=== PATIENT | male | born 1985 | race Caucasian/White ===

== ENCOUNTER 2022-03-13 06:23 | Inpatient (IN) | payer BC ==
--- NOTE | 2022-03-09 15:12 | RAD REPORT ---
EXAM DESCRIPTION: RAD - Chest Pa And Lat (2 Views) - 03/09/2022 3:01 pm CLINICAL HISTORY: Pre op pending rectal exam mass removal Chest pain. COMPARISON: No comparisons FINDINGS: The lungs are clear. The heart is normal in size. No displaced fractures. IMPRESSION: No acute or concerning finding suspected.
[2022-03-09 15:27] LABS: Absolute Lymphocytes (CBC) 2.1 K/uL (0.7-4.9); Hematocrit 40.5 % (39.6-49.0); Lymphocytes % 23.9 % (15.3-44.8); MCV 82.3 fL (80-100); MPV 8.6 fL (7.6-11.3); RBC Red Blood Cell Count 4.93 M/uL (4.33-5.43)
[2022-03-09 15:42] LABS: SARS-CoV-2 Antigen Rapid Res Negative (Negative)
[2022-03-09 15:44] LABS: Potassium 3.9 mmol/L (3.5-5.1)
--- NOTE | 2022-03-10 14:04 | EKG ---
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
[2022-03-13] MEDS ORDERED: CEFOXITIN SODIUM 1 GM/VIAL ONE (06:38)
[2022-03-13] MEDS ORDERED: Ringers Lactate 1,000 ML IV ONE (06:39)
[2022-03-13] MEDS ORDERED: BUPIVACAINE 0.5% PF 10 ML VIAL ONE (06:58)
[2022-03-13] MEDS ORDERED: propofoL 200 MG/20 ML VIAL IV ONE ×3 (07:14→07:53)
[2022-03-13] MEDS ORDERED: MIDAZOLAM HCL 2 MG/2 ML INJ ONE ×2 (07:15→08:42)
[2022-03-13] MEDS ORDERED: LIDOCAINE 2% MPF 5 ML VIAL ONE (07:15)
[2022-03-13] MEDS ORDERED: FENTANYL CITR 100 MCG/2 ML ONE ×2 (07:15→07:52)
[2022-03-13] MEDS ORDERED: NS 0.9% VIAL 10 ML ONE (07:23)
[2022-03-13] MEDS ORDERED: ROCURONIUM 50 MG/5 ML VIAL IV ONE (07:52)
[2022-03-13] MEDS ORDERED: dexAMETHasone 10 MG/ML VIAL ONE ×2 (07:55→09:13)
[2022-03-13] MEDS ORDERED: ONDANSETRON 4 MG/2 ML VIAL ONE ×2 (08:24→09:20)
--- NOTE | 2022-03-13 08:43 | P.PN ---
Date of Service: 03/13/22 Patient was scheduled for a exam under anesthesia, proctoscopy and excision of the perianal mass. While being intubated, patient aspirated solid material into his lung. Patient was intubated and stabilized in the OR. The procedure was canceled. Patient was given 10 mg of Decadron. Patient had a chest x-ray in recovery room which showed whiteout of the left lung. The ET tube was pulled back slightly. Repeat x-ray showed almost complete resolution of the right. Patient is clinically stable at this time. Patient is alert and following commands. O2 sats around 93-94% at this time on FiO2 of 100%. Patient remains intubated at this time. Discussed the case in detail with Dr. Tierney and the family. We are going to admit the patient to the ICU under the care of Dr. Zamora. Dr. Hernandez will be consulted from the pulmonary service for continued management. Family has been notified of the plan.
--- NOTE | 2022-03-13 08:47 | RAD REPORT ---
EXAM DESCRIPTION: RAD - Chest Single View - 03/13/2022 8:17 am CLINICAL HISTORY: possible aspiration Chest pain. COMPARISON: Chest Pa And Lat (2 Views) dated 03/09/2022 FINDINGS: Portable technique limits examination quality. Tip of the ET tube is entering the right mainstem bronchus. Complete atelectasis is seen affecting th e left lung. Cardiac size cannot be adequately assessed. No displaced fractures.
[2022-03-13] MEDS ORDERED: SUCCINYLCHOLINE 20 MG/ML (10 ML) IV ONE (08:52)
--- NOTE | 2022-03-13 08:53 | RAD REPORT ---
EXAM DESCRIPTION: RAD - Chest Single View - 03/13/2022 8:41 am CLINICAL HISTORY: S/P ABORTED EUA, ASPIRATION Chest pain. COMPARISON: Chest Single View dated 03/13/2022; Chest Pa And Lat (2 Views) dated 03/09/2022 FINDINGS: Portable technique limits examination quality. Tip of the endotracheal tube is at the level of the aortic arch, above the walter. Atelectasis is lik jasbir present in the right upper lobe. Mildly prominent cardiac silhouette.
[2022-03-13] MEDS ORDERED: GLYCOPYRROLATE 0.2 MG/ML SYR ONE (09:13)
[2022-03-13] MEDS ORDERED: NEOSTIGMINE 1 MG/ML -5 ML ONE (09:20)
[2022-03-13] MEDS ORDERED: KETOROLAC 30 MG/ML INJ ONE (09:20)
[2022-03-13] MEDS ORDERED: propofoL 500 MG/50 ML ML IV PRN (09:30)
[2022-03-13] MEDS ORDERED: ACETAMINOPHEN 500 MG TAB PO PRN (09:30)
[2022-03-13] MEDS ORDERED: ONDANSETRON 4 MG/2 ML VIAL IV PRN (09:30)
[2022-03-13] MEDS ORDERED: FENTANYL CITR 100 MCG/2 ML IV PRN (09:30)
--- OUTSIDE RECORDS SUMMARY | 2022-03-13 10:23 | XMS REPORT | Continuity of Care Document ---
:1985 Author Organization [facility] t Address [address] [place] [address] Care Team Providers Name Role Phone August Mckay Attending Clinician Unavailable LUCINDA SANTAMARIA I Attending Clinician Unavailable Gil Attending Clinician Unavailable Gil Admitting Clinician Unavailable Payers Payer Name Policy Type Policy Number Effective Date Expiration Date S rashad Blue Cross 6 [id number] 2020 Common Spiri t Blue Shield 00:00:00 - [facility] [id number] PPO/EPO - [id number] [place] Blue Cross C1 [id number] Common Spiri t Blue Shield - [facility] [place] Problems Condition Condition Condition Status Onset Resolution Last Treating Co mments Source Name Details Category Date Date Treatment Clinician Date [id number] Insomnia, Problem Com mon unspecifie Spirit d type - [facility] [id number] Attention Problem Comm on deficit Spirit hyperactiv - CHI ity St disorder [facility] (ADHD), Medical combined Center type [id number] Morbid Problem Common (severe) Spirit obesity - CHI due to [facility] [id number] Current Problem Common moderate Spirit episode of - CHI major [facility] depressive [facility] disorder Medical without Center prior episode [id number] Generalize Problem Com mon d anxiety [facility] [id number] Hypertrigl Problem Co mmon yceridemia [facility] Allergies, Adverse Reactions, Alerts This patient has no known allergies or adverse reactions. Social History Social Habit Start Date Stop Date Quantity Comments Source History of Tobacco Use Co mmon [facility] Sex Assigned At Com [facility] Smoking Status Start Date Stop Date Source Never Smoker Common [facility] Current Smoker 2021-11-03 00:00:00 Common Spiri [facility] Medications Ordered Filled Start Stop Current Ordering Indication Dosage Frequency Signature Comments Components Source Medication Medication Date Date Medication? Clinician (SIG) Name Name Vyvanse 70 Vyvanse 70 2021-05 No 1{capsu QD Vyvanse 70 MG MG 0-11 le_in_t MG 00:00: he_morn 00 ing} Vyvanse 70 Vyvanse 70 No 1{capsu QD Vyvanse 70 MG MG 8-18 le_in_t MG 00:00: he_morn 00 ing} Trintellix Trintellix No 1{table QD Trintellix 10 MG 10 MG 8-18 t} 10 MG 00:00: 00 Vyvanse 70 Vyvanse 70 No 1{capsu QD Vyvanse 70 MG MG 8-18 le_in_t MG 00:00: he_morn 00 ing} Trintellix Trintellix No 1{table QD Trintellix 10 MG 10 MG 8-18 t} 10 MG 00:00: 00 Vyvanse 70 Vyvanse 70 No 1{capsu QD Vyvanse 70 MG MG 7-14 le_in_t MG 00:00: he_morn 00 ing} buPROPion buPROPion No 1{table QD buPROPion HCl ER (XL) HCl ER (XL) 7-14 t_in_th HCl ER 150 MG 150 MG 00:00: e_morni (XL) 150 00 ng} MG Vyvanse 70 Vyvanse 70 No 1{capsu QD Vyvanse 70 MG MG 7-14 le_in_t MG 00:00: he_morn 00 ing} buPROPion buPROPion 2021-0 No 1{table QD buPROPion HCl ER (XL) HCl ER (XL) 7-14 t_in_th HCl ER 150 MG 150 MG 00:00: e_morni (XL) 150 00 ng} MG Ciprofloxac Ciprofloxac 202- No 1{table BID Ciprofloxa in HCl 500 in HCl 500 11-03 t} moncho HCl MG MG 00:00: 00:00 500 MG 00 :00 Ciprofloxac Ciprofloxac 2021- No 1{table BID Ciprofloxa in HCl 500 in HCl 500 11-03 t} moncho HCl MG MG 00:00: 00:00 500 MG 00 :00 Ciprofloxac Ciprofloxac 2021- No 1{table BID Ciprofloxa in HCl 500 in HCl 500 11-03 t} moncho HCl MG MG 00:00: 00:00 500 MG 00 :00 Vyvanse 60 Vyvanse 60 2021-0 No 1{capsu QD Vyvanse 60 MG MG 6-05 le_in_t MG 00:00: he_morn 00 ing} Vyvanse 60 Vyvanse 60 2021-0 No 1{capsu QD Vyvanse 60 MG MG 6-05 le_in_t MG 00:00: he_morn 00 ing} Vyvanse 60 Vyvanse 60 2021-0 No 1{capsu QD Vyvanse 60 MG MG 6-05 le_in_t MG 00:00: he_morn 00 ing} Vyvanse 60 Vyvanse 60 2021-0 No 1{capsu QD Vyvanse 60 MG MG 6-05 le_in_t MG 00:00: he_morn 00 ing} Vyvanse 60 Vyvanse 60 2021-0 No 1{capsu QD Vyvanse 60 MG MG 6-05 le_in_t MG 00:00: he_morn 00 ing} Vyvanse 60 Vyvanse 60 2021-0 No 1{capsu QD Vyvanse 60 MG MG 4- le_in_t MG 00:00: he_morn 00 ing} Vyvanse 60 Vyvanse 60 2021-0 No 1{capsu QD Vyvanse 60 MG MG 3- le_in_t MG 00:00: he_morn 00 ing} predniSONE predniSONE 2021-0 2021- No QD predniSONE 20 MG 20 MG -15 08- 20 MG 00:00: 00:00 00 :00 predniSONE predniSONE 2021-0 2021- No QD predniSONE 20 MG 20 MG 07-18 20 MG 00:00: 00:00 00 :00 predniSONE predniSONE 2021-0 2021- No QD predniSONE 20 MG 20 MG -15 08- 20 MG 00:00: 00:00 00 :00 Vyvanse 60 Vyvanse 60 No 1{capsu QD Vyvanse 60 MG MG 2- le_in_t MG 00:00: he_morn 00 ing} Vyvanse 60 Vyvanse 60 2021-0 No 1{capsu QD Vyvanse 60 MG MG 2-02 le_in_t MG 00:00: he_morn 00 ing} Vyvanse 60 Vyvanse 60 2021-0 No 1{capsu QD Vyvanse 60 MG MG 2-02 le_in_t MG 00:00: he_morn 00 ing} Vyvanse 60 Vyvanse 60 2021-0 No 1{capsu QD Vyvanse 60 MG MG 2-02 le_in_t MG 00:00: he_morn 00 ing} Vyvanse 60 Vyvanse 60 2021-0 No 1{capsu QD Vyvanse 60 MG MG 1-03 le_in_t MG 00:00: he_morn 00 ing} Vyvanse 60 Vyvanse 60 2021-0 No 1{capsu QD Vyvanse 60 MG MG 1-03 le_in_t MG 00:00: he_morn 00 ing} Vyvanse 60 Vyvanse 60 2021-0 No 1{capsu QD Vyvanse 60 MG MG 1-03 le_in_t MG 00:00: he_morn 00 ing} Vyvanse 60 Vyvanse 60 No 1{capsu QD Vyvanse 60 MG MG 1-03 le_in_t MG 00:00: he_morn 00 ing} Vyvanse 60 Vyvanse 60 2020-05 No 1{capsu QD Vyvanse 60 MG MG 1-26 le_in_t MG 00:00: he_morn 00 ing} Vyvanse 60 Vyvanse 60 2020-05 No 1{capsu QD Vyvanse 60 MG MG 0-27 le_in_t MG 00:00: he_morn 00 ing} Vyvanse 60 Vyvanse 60 No 1{capsu QD Vyvanse 60 MG MG 9-25 le_in_t MG 00:00: he_morn 00 ing} Vyvanse 60 Vyvanse 60 No 1{capsu QD Vyvanse 60 MG MG 8-26 le_in_t MG 00:00: he_morn 00 ing} Vyvanse Vyvanse 2019- Yes August 1 capsule Common 0-16 Mckay in the Spirit 00:00: morning - [facility] 00 [facility] Kenalog Kenalog 2020-0 No 40mg Common (Triamcinol (Triamcinol 3-13 S pirit one) one) 00:00: - CHI 00 [facility] Kenalog Kenalog 2020-0 No 40mg Common (Triamcinol (Triamcinol 3-13 S pirit one) one) 00:00: - [facility]I 00 [facility] Kenalog Kenalog 2020-0 No 40mg Common (Triamcinol (Triamcinol 3-13 S pirit one) one) 00:00: - CHI 00 [facility] Kenalog Kenalog 2020-0 No 40mg Common (Triamcinol (Triamcinol 3-13 S pirit one) one) 00:00: - [facility]I 00 [facility] Kenalog Kenalog 2020-0 No 40mg Common (Triamcinol (Triamcinol 3-13 S pirit one) one) 00:00: - [facility]I 00 [facility] Kenalog Kenalog 2020-0 No 40mg Common (Triamcinol (Triamcinol 3-13 S pirit one) one) 00:00: - [facility]I 00 [facility] Kenalog Kenalog 2020-0 No 40mg Common (Triamcinol (Triamcinol 3-13 S pirit one) one) 00:00: - [facility]I 00 [facility] Kenalog Kenalog 2020-0 No 40mg Common (Triamcinol (Triamcinol 3-13 S pirit one) one) 00:00: - CHI 00 [facility] Kenalog Kenalog 2020-0 No 40mg Common (Triamcinol (Triamcinol 3-13 S pirit one) one) 00:00: - CHI 00 [facility] Mode Kenalog 2020-0 No 40mg Common (Triamcinol (Triamcinol 3-13 S pirit one) one) 00:00: - CHI 00 [facility] Mode Kenalog 2020-0 No 40mg Common (Triamcinol (Triamcinol 3-13 S pirit one) one) 00:00: - [facility]I 00 [facility] Kenrc Kenalog 2020-0 No 40mg Common (Triamcinol (Triamcinol 3-13 S pirit one) one) 00:00: - [facility]I 00 [facility] Kenrc Kenalog 2020-0 No 40mg Common (Triamcinol (Triamcinol 3-13 S pirit one) one) 00:00: - CHI 00 [facility] Mode Kenalog 2020-0 No 40mg Common (Triamcinol (Triamcinol 3-13 S pirit one) one) 00:00: - [facility]I 00 [facility] sertraline sertraline No sertraline [place] 100 mg 100 mg 100 mg da tablet TAKE tablet TAKE tablet Medical ONE AND ONE AND TAKE ONE Group ONE-HALF (1 ONE-HALF (1 AND AND 1/2) AND 1/2) ONE-HALF TABLET(S) TABLET(S) (1 AND BY MOUTH BY MOUTH 1/2) DAILY. DAILY. TABLET(S) BY MOUTH DAILY. Vyvanse 60 Vyvanse 60 No Vyvanse 60 [place] mg capsule mg capsule mg capsule da TAKE ONE TAKE ONE TAKE ONE Med ical (1) (1) (1) Group CAPSULE(S) CAPSULE(S) CAPSULE(S) BY MOUTH BY MOUTH BY MOUTH EVERY EVERY EVERY MORNING. MORNING. MORNING. Zoloft Zoloft Yes August 1 tablet Commo n Mckay [facility] Trazodone Trazodone Yes August 1 tablet Common HCl HCl Mckay at bedtime [facility] Zoloft 100 Zoloft 100 No 1.5{tab QD Zoloft 100 MG MG let} MG Zoloft 100 Zoloft 100 No Zoloft 100 MG MG MG traZODone traZODone No 1{table QD traZODone HCl 100 MG HCl 100 MG t_at_be HCl 100 MG dtime} Zoloft 100 Zoloft 100 No 1.5{tab QD Zoloft 100 MG MG let} MG traZODone traZODone No 1{table QD traZODone HCl 100 MG HCl 100 MG t_at_be HCl 100 MG dtime} Zoloft 100 Zoloft 100 No Zoloft 100 MG MG MG Zoloft 100 Zoloft 100 No 1.5{tab QD Zoloft 100 MG MG let} MG traZODone traZODone No 1{table QD traZODone HCl 100 MG HCl 100 MG t_at_be HCl 100 MG dtime} Zoloft 100 Zoloft 100 No Zoloft 100 MG MG MG Zoloft 100 Zoloft 100 No 1.5{tab QD Zoloft 100 MG MG let} MG traZODone traZODone No 1{table QD traZODone HCl 100 MG HCl 100 MG t_at_be HCl 100 MG dtime} Zoloft 100 Zoloft 100 No Zoloft 100 MG MG MG Zoloft 100 Zoloft 100 No Zoloft 100 MG MG MG Vyvanse 60 Vyvanse 60 No 1{capsu QD Vyvanse 60 MG MG le_in_t MG he_morn ing} Zoloft 100 Zoloft 100 No Zoloft 100 MG MG MG Zoloft 100 Zoloft 100 No Zoloft 100 MG MG MG Vyvanse 60 Vyvanse 60 No 1{capsu QD Vyvanse 60 MG MG le_in_t MG he_morn ing} Zoloft 100 Zoloft 100 No Zoloft 100 MG MG MG Vyvanse 60 Vyvanse 60 No 1{capsu QD Vyvanse 60 MG MG le_in_t MG he_morn ing} Zoloft 100 Zoloft 100 No Zoloft 100 MG MG MG Vyvanse 60 Vyvanse 60 No 1{capsu QD Vyvanse 60 MG MG le_in_t MG he_morn ing} Zoloft 100 Zoloft 100 No Zoloft 100 MG MG MG Vyvanse 60 Vyvanse 60 No 1{capsu QD Vyvanse 60 MG MG le_in_t MG he_morn ing} Vyvanse 60 Vyvanse 60 No 1{capsu QD Vyvanse 60 MG MG le_in_t MG he_morn ing} Vyvanse 60 Vyvanse 60 No 1{capsu QD Vyvanse 60 MG MG le_in_t MG he_morn ing} Vyvanse 60 Vyvanse 60 No 1{capsu QD Vyvanse 60 MG MG le_in_t MG he_morn ing} Vyvanse 60 Vyvanse 60 No 1{capsu QD Vyvanse 60 MG MG le_in_t MG he_morn ing} Trintellix Trintellix No 1{table QD Trintellix 20 MG 20 MG t} 20 MG Zoloft 100 Zoloft 100 No Zoloft 100 MG MG MG Zoloft 100 Zoloft 100 No 1.5{tab QD Zoloft 100 MG MG let} MG traZODone traZODone No 1{table QD traZODone HCl 100 MG HCl 100 MG t_at_be HCl 100 MG dtime} traZODone traZODone No 1{table QD traZODone HCl 100 MG HCl 100 MG t_at_be HCl 100 MG dtime} Zoloft 100 Zoloft 100 No 1.5{tab QD Zoloft 100 MG MG let} MG Zoloft 100 Zoloft 100 No Zoloft 100 MG MG MG Immunizations Ordered Immunization Filled Immunization Date Status Commen ts Source Name Name Mode Coello 2019-08-04 Completed Common [facility] (Triamcinolone) (Triamcinolone) 08:53:00 - I [facility] Kenalog Kenalog 2019-08-04 Completed Common Spirit (Triamcinolone) (Triamcinolone) 08:53:00 - I [facility] Adacel (Tdap) Adacel (Tdap) 2018-08-03 Completed Common S pirit 15:18:00 - [facility] Adacel (Tdap) Adacel (Tdap) 2018-08-03 Completed Common S pirit 15:18:00 - [facility] Adacel (Tdap) Adacel (Tdap) 2018-08-03 Completed Common S pirit 15:18:00 - [facility] Adacel (Tdap) Adacel (Tdap) 2018-08-03 Completed Common S pirit 15:18:00 - [facility] Adacel (Tdap) Adacel (Tdap) 2018-08-03 Completed Common S pirit 15:18:00 - [facility] Adacel (Tdap) Adacel (Tdap) 2018-08-03 Completed Common S pirit 15:18:00 - [facility] Adacel (Tdap) Adacel (Tdap) 2018-08-03 Completed Common S pirit 15:18:00 - [facility] Adacel (Tdap) Adacel (Tdap) 2018-08-03 Completed Common S pirit 15:18:00 - [facility] Adacel (Tdap) Adacel (Tdap) 2018-08-03 Completed Common S pirit 15:18:00 - [facility] Adacel (Tdap) Adacel (Tdap) 2018-08-03 Completed Common S pirit 15:18:00 - [facility] Adacel (Tdap) Adacel (Tdap) 2018-08-03 Completed Common S pirit 15:18:00 - [facility] Adacel (Tdap) Adacel (Tdap) 2018-08-03 Completed Common S pirit 15:18:00 - [facility] Adacel (Tdap) Adacel (Tdap) 2018-08-03 Completed Common S pirit 15:18:00 - [facility] Adacel (Tdap) Adacel (Tdap) 2018-08-03 Completed Common S pirit 15:18:00 - [facility] Adacel (Tdap) Adacel (Tdap) 2018-08-03 Completed Common S pirit 15:18:00 - [facility] Adacel (Tdap) Adacel (Tdap) 2018-08-03 Completed Common S pirit 15:18:00 - [facility] Adacel (Tdap) Adacel (Tdap) 2018-08-03 Completed Common S pirit 15:18:00 - [facility] TDAP > 7 TDAP > 7 2018-08-03 Completed Common Spirit Years-Adacel Years-Adacel 00:00:00 - [facility] Vital Signs Vital Name Observation Time Observation Value Comments Source height 2022-03-03 08:00:00 69 [in_i] Common pirit [facility] weight 2022-03-03 08:00:00 425 [lb_av] Common S pirit [facility] bmi 2022-03-03 08:00:00 62.75 kg/m2 Common S pirit [facility] blood pressure 2022-03-03 08:00:00 132 mm[Hg] Common Spirit - systolic [facility] blood pressure 2022-03-03 08:00:00 75 mm[Hg] Common Spirit - diastolic [facility] height 2022-01-08 11:30:00 69 [in_i] Common S pirit [facility] weight 2022-01-08 11:30:00 422 [lb_av] Common S pirit [facility] temperature 2022-01-08 11:30:00 98 [degF] Common S pirit [facility] bmi 2022-01-08 11:30:00 62.31 kg/m2 Common S pirit [facility] blood pressure 2022-01-08 11:30:00 130 mm[Hg] Common Spirit - systolic [facility] blood pressure 2022-01-08 11:30:00 70 mm[Hg] Common Spirit - diastolic [facility] height 2021-12-04 09:30:00 69 [in_i] [facility] weight 2021-12-04 09:30:00 422 [lb_av] [facility] temperature 2021-12-04 09:30:00 97.6 [degF] Common S pirit [facility] bmi 2021-12-04 09:30:00 62.31 kg/m2 Common S pirit [facility] oximetry 2021-12-04 09:30:00 97 % Common [facility] respiratory rate 2021-12-04 09:30:00 18 /min Comm on [facility] blood pressure 2021-12-04 09:30:00 136 mm[Hg] Common [facility] - systolic [facility] blood pressure 2021-12-04 09:30:00 74 mm[Hg] Common [facility] - diastolic [facility] height 2021-11-03 10:40:00 69 [in_i] Common [facility] weight 2021-11-03 10:40:00 417.8 [lb_av] [facility] temperature 2021-11-03 10:40:00 98.1 [degF] Common [facility] bmi 2021-11-03 10:40:00 61.69 kg/m2 [facility] oximetry 2021-11-03 10:40:00 99 % Common S [facility] respiratory rate 2021-11-03 10:40:00 18 /min Comm on [facility] blood pressure 2021-11-03 10:40:00 135 mm[Hg] Common [facility] - systolic [facility] blood pressure 2021-11-03 10:40:00 88 mm[Hg] Common Spirit - diastolic [facility] height 2021-09-25 07:40:00 69 [in_i] [facility] weight 2021-09-25 07:40:00 418 [lb_av] Common S pirit - [facility] temperature 2021-09-25 07:40:00 97.4 [degF] Common S pirit - [facility] bmi 2021-09-25 07:40:00 61.72 kg/m2 Common S pirit [facility] blood pressure 2021-09-25 07:40:00 135 mm[Hg] Common Spirit - systolic [facility] blood pressure 2021-09-25 07:40:00 75 mm[Hg] Common Spirit - diastolic [facility] height 2021-07-30 08:00:00 69 [in_i] Common S pirit [facility] weight 2021-07-30 08:00:00 418 [lb_av] [facility] temperature 2021-07-30 08:00:00 98 [degF] Common S pirit [facility] bmi 2021-07-30 08:00:00 61.72 kg/m2 [facility] S pirit [facility] blood pressure 2021-07-30 08:00:00 132 mm[Hg] Common Spirit - systolic [facility] blood pressure 2021-07-30 08:00:00 71 mm[Hg] Common Spirit - diastolic [facility] height 2021-07-18 11:40:00 69 [in_i] [facility] weight 2021-07-18 11:40:00 420 [lb_av] Common S pirit [facility] temperature 2021-07-18 11:40:00 97 [degF] Common S pirit [facility] bmi 2021-07-18 11:40:00 62.02 kg/m2 [facility] height 2021-05-14 16:30:00 69 [in_i] [facility] weight 2021-05-14 16:30:00 420 [lb_av] [facility] S pirit [facility] temperature 2021-05-14 16:30:00 98 [degF] [facility] S pirit [facility] bmi 2021-05-14 16:30:00 62.02 kg/m2 Common S pirit [facility] blood pressure 2021-05-14 16:30:00 135 mm[Hg] Common Spirit - systolic [facility] blood pressure 2021-05-14 16:30:00 70 mm[Hg] Common Spirit - diastolic [facility] height 2021-03-19 07:50:00 69 [in_i] Common S pirit [facility] weight 2021-03-19 07:50:00 418 [lb_av] [facility] temperature 2021-03-19 07:50:00 97.3 [degF] Common S pirit [facility] bmi 2021-03-19 07:50:00 61.72 kg/m2 [facility] blood pressure 2021-03-19 07:50:00 130 mm[Hg] Common Spirit - systolic [facility] blood pressure 2021-03-19 07:50:00 76 mm[Hg] Common Spirit - diastolic [facility] height 2021-01-16 13:20:00 69 [in_i] Common [facility] weight 2021-01-16 13:20:00 420 [lb_av] Common S pirit [facility] temperature 2021-01-16 13:20:00 98 [degF] Common S pirit [facility] bmi 2021-01-16 13:20:00 62.02 kg/m2 Common S pirit - [facility] blood pressure 2021-01-16 13:20:00 131 mm[Hg] Common Spirit - systolic [facility] blood pressure 2021-01-16 13:20:00 67 mm[Hg] Common Spirit - diastolic [facility] BMI (Body Mass 2020-10-15 00:00:00 62 kg/m2 [facility]) Group BP Systolic 2020-10-15 00:00:00 168 mm[Hg] [facility] Body Weight 2020-10-15 00:00:00 6720 [oz_av] [facility] BP Diastolic 2020-10-15 00:00:00 95 mm[Hg] [facility] Height 2020-10-15 00:00:00 69 [in_i] [facility] Procedures Procedure Date / Time Performing Clinician Source Performed [facility] + LH PROFILE 2021-10-24 15:26:00 [facility] TESTOSTERONE 2021-10-24 15:26:00 [facility] COMPREHENSIVE METABOLIC 2021-10-24 15:26:00 [facility] Encounters Start End Encounter Admission Attending Care Care Encounter Source Date/Time Date/Time Type Type Clinicians Facility Department ID 2021-08-12 Outpatient Mckay, STLMLC STLMLC [id number] Common 13:24:01 August [id number] [facility] 2021-07-25 Outpatient Mckay, STLMLC STLMLC [id number] Common 14:11:00 August [id number] [facility] 2021-06-18 Outpatient Mckay, STLMLC STLMLC [id number] Common 14:01:06 August [id number] [facility] 2021-06-18 Outpatient Mckay, STLMLC STLMLC [id number] Common 14:00:46 August [id number] [facility] 2021-06-18 Outpatient Mckay, STLMLC STLMLC [id number] Common 13:27:42 August [id number] [facility] 2021-06-18 Outpatient Mckay, STLMLC STLMLC [id number] Common 12:47:28 August [id number] [facility] 2021-06-18 Outpatient Mckay, STLMLC STLMLC [id number] Common 12:13:08 August [id number] [facility] 2021-06-18 Outpatient Mckay, STLMLC STLMLC [id number] Common 11:18:43 August [id number] [facility] 2022-03-03 2022-03-03 OFFICE STLC STLC [id number] Co mmon 00:00:00 00:00:00 VISIT Spirit ESTAB PT - CHI LEVEL 4 [facility] 2022-01-14 2022-01-14 (TEL) STLMLC STLMLC [id number] Co mmon 00:00:00 00:00:00 [facility] 2022-01-08 2022-01-08 OFFICE STLMLC STLMLC [id number] Co mmon 00:00:00 00:00:00 VISIT Spirit ESTAB PT - [facility] LEVEL 4 [facility] 2021-12-10 2021-12-10 (TEL) STLMLC STLMLC [id number] Co mmon 00:00:00 00:00:00 [facility] 2021-12-04 2021-12-04 (WELLNESS) STLMLC STLMLC [id number] Common 00:00:00 00:00:00 Wellness Spiri t [facility] 2021-11-05 2021-11-05 (TEL) STLMLC STLMLC [id number] Co mmon 00:00:00 00:00:00 [facility] 2021-11-04 2021-11-04 (TEL) STLMLC STLMLC [id number] Co mmon 00:00:00 00:00:00 [facility] 2021-11-03 2021-11-03 (TEL) STLMLC STLMLC [id number] Co mmon 00:00:00 00:00:00 [facility] 2021-11-03 2021-11-03 OFFICE STLMLC STLMLC [id number] Co mmon 00:00:00 00:00:00 VISIT EST Spir it PT LEVEL 3 [facility] 2021-10-24 2021-10-24 Outpatient NENA SANTAMARIA [facility] [id number] [facility] 12:40:47 12:40:47 LUCINDA Carter 2021-09-25 2021-09-25 OFFICE STLMLC STLMLC [id number] Co mmon 00:00:00 00:00:00 VISIT EST Spir it PT LEVEL 3 [facility] 2021-07-30 2021-07-30 OFFICE STLMLC STLMLC [id number] Co mmon 00:00:00 00:00:00 VISIT EST Spir it PT LEVEL 3 [facility] 2021-07-18 2021-07-18 OFFICE STLMLC STLMLC [id number] Co mmon 00:00:00 00:00:00 VISIT EST Spir it PT LEVEL 3 [facility] 2021-07-18 2021-07-18 (TEL) STLMLC STLMLC [id number] Co mmon 00:00:00 00:00:00 [facility] 2021-07-17 2021-07-17 (TEL) STLMLC STLMLC [id number] Co mmon 00:00:00 00:00:00 [facility] 2021-05-14 2021-05-14 OFFICE STLMLC STLMLC [id number] Co mmon 00:00:00 00:00:00 VISIT EST Spir it PT LEVEL 3 [facility] 2021-03-19 2021-03-19 OFFICE STLMLC STLMLC [id number] Co mmon 00:00:00 00:00:00 VISIT EST Spir it PT LEVEL 3 [facility] 2021-01-16 2021-01-16 OFFICE STLMLC STLMLC [id number] Co mmon 00:00:00 00:00:00 VISIT EST Spir it PT LEVEL 3 [facility] 2020-12-18 2020-12-18 Outpatient STLMLC STLMLC [id number] Common 00:00:00 00:00:00 [facility] 2020-11-11 2020-11-11 Outpatient STLMLC STLMLC [id number] Common 00:00:00 00:00:00 [facility] 2020-10-16 2020-10-16 Outpatient Koudela_A MMG MMG [id number] [place] 09:26:00 09:26:00 [id number] [facility] 2020-10-15 2020-10-15 [place] K[place] - [id number] [place] 00:00:00 00:00:00 [facility] 0525 rosio PA-C: [address] [place] [address] [address], [facility], [place] [address] , Ph. 2020-10-14 2020-10-14 Outpatient Gil [facility] [id number] [place] 03:35:00 03:35:00 [id number] [facility] Group 2020-08-27 2020-08-27 Outpatient STLMLC STLMLC [id number] Common 00:00:00 00:00:00 [facility] 2020-06-25 2020-06-25 Outpatient STLMLC STLMLC [id number] Common 00:00:00 00:00:00 [facility] 2020-06-17 2020-06-17 Outpatient [facility] ST[facility] [id number] Common 00:00:00 00:00:00 [facility] 2020-04-25 2020-04-25 Outpatient [facility] ST[facility] [id number] Common 00:00:00 00:00:00 [facility] 2020-02-09 2020-02-09 [id number] Common 09:40:00 09:40:00 [place] [address] [facility] 2019-12-15 2019-12-15 [facility] [id number] Common 07:49:00 07:49:00 [place] [address] [facility] 2019-11-08 2019-11-08 [facility] 30 [id number] Common 11:30:00 11:30:[address] [place] [address] [facility] 2019-09-12 2019-09-12 [id number] Common 14:45:00 14:45:00 t [place] [address] [facility] 2019-08-04 2019-08-04 [id number] Common 08:15:00 08:15:00 t [place] [address] [facility] 2019-07-19 2019-07-19 [id number] Common 10:15:00 10:15:00 t [place] [address] [facility] 2019-06-21 2019-06-21 [id number] Common 08:43:00 08:43:[address] [facility] 2019-04-19 2019-04-19 [facility] [id number] Common 10:30:00 10:30:00 t [place] [address] [facility] 2019-03-21 2019-03-21 [facility] [id number] Common 13:15:00 13:15:00 t [place] [address] [facility] 2019-03-15 2019-03-15 [facility] [id number] Common 09:35:00 09:35:00 t [place] [address] [facility] 2019-02-21 2019-02-21 [id number] Common 11:00:00 11:00:00 t [place] [address] [facility] 2019-01-16 2019-01-16 [facility] [id number] Common 08:30:00 08:30:00 t [place] [address] [facility] 2018-12-20 2018-12-20 [facility] [id number] Common 15:15:00 15:15:00 t [place] [address] [facility] 2018-11-29 2018-11-29 [facility] [id number] Common 11:00:00 11:00:00 t [place] [address] [facility] 2018-11-16 2018-11-16 [facility] [id number] Common 11:07:00 11:07:00 t [place] [address] [facility] 2018-08-03 2018-08-03 [facility] [id number] Common 15:15:00 15:15:00 t [place] [address] [facility] 2018-07-28 2018-07-28 [facility] [id number] Common 10:42:00 10:42:00 t [place] [address] [facility] 2018-06-27 2018-06-27 [facility] [id number] Common 11:06:00 11:06:00 t [place] [address] [facility] 2018-06-06 2018-06-06 [facility] [id number] Common 14:45:00 14:45:00 t [place] [address] [facility] 2018-05-05 2018-05-05 [facility] [id number] Common 09:30:00 09:30:00 t [place] [address] [facility] Results Test Description Test Time Test Comments Results Result Comments Source Urine Culture,Comprehensive 2021-11-03 00:00:00 Test Item Value Reference Range Interpretation Comme nts Urine Culture,Comprehensive (test code = 630-4) Final report
--- NOTE | 2022-03-13 11:33 | P.CNS ---
Date of Consult: 03/13/22 Reason for Consult: Atelectasis of the left lung Chief Complaint: Respiratory failure History of Present Illness: Patient is 37 years of age and was admitted for outpatient excision of the left anal mass currently after intubated intubation he had vomited chest x-ray shows complete opacification of the left lung most likely from right mainstem intubation his chest x-ray is normal he was extubated prior to admitted to the ICU denies any prior cardiopulmonary history Allergies No Known Allergies Allergy (Verified 03/09/22 14:26) Home Medications: Lisdexamfetamine Dimesylate [Vyvanse] 70 mg PO DAILY 03/09/22 Vortioxetine Hydrobromide [Brintellix] 20 mg PO DAILY 03/09/22 Review of Systems 10-point ROS is otherwise unremarkable Physical Examination Temp Pulse Resp BP Pulse Ox 96.8 F 87 12 146/57 H 03/13/22 10:19 03/13/22 10:19 03/13/22 10:19 03/13/22 10:19 General: Alert, In no apparent distress, Oriented x3 Neck: Supple Respiratory: Clear to auscultation bilaterally, Normal air movement Cardiovascular: No edema, Normal S1 S2 - Problems (1) Atelectasis of left lung Current Visit: Yes Status: Acute Plan: Patient is 37 years of age admitted as an outpatient for excision of his anal mass developed atelectasis of the left lung I suspect it was right mainstem intubation also had some vomiting there I doubt if he has aspiration repeat chest x-ray is clear he is asymptomatic denies any problems patient was extubated he is alert oriented responsive cooperative. Labs reviewed unremarkable stable for discharge no antibiotics needed
[2022-03-13] MEDS ORDERED: PIPER TAZO 3.375 GM in NA CHLORIDE 0.9% 50 ML IV SCH (12:00)
[2022-03-13] MEDS: PIPER TAZO 3.375 GM in NA CHLORIDE 0.9% 100 ML IV SCH ×2 (12:53→17:00)
[2022-03-13] MEDS: NA CHLORIDE 0.9% 1,000 ML IV SCH (12:53)
[2022-03-13] MEDS: METHYLPREDNISOLONE 40 MG INJ IV SCH ×3 (12:54→23:39)
[2022-03-13] MEDS: METOCLOPRAMIDE 10 MG/2mL INJ IV SCH ×3 (12:54→23:39)
[2022-03-13] MEDS: IPRATROPIUM BROM 0.5MG/2.5ML NEB SCH ×2 (14:16→19:35)
[2022-03-13] MEDS: ALBUTEROL 2.5 MG/3 ML NEB SOL NEB SCH ×2 (14:16→19:35)
[2022-03-13 16:34] VITALS: BMI 62.0
--- NOTE | 2022-03-13 19:11 | P.HP ---
Certification for Inpatient Patient admitted to: Inpatient With expected LOS: >2 Midnights Patient will require the following post-hospital care: None Practitioner: I am a practitioner with admitting privileges, knowledge of patient current condition, hospital course, and medical plan of care. Services: Services provided to patient in accordance with Admission requirements found in Title 42 Section 412.3 of the Code of Federal Regulations Patient History Date of Service: 03/13/22 Reason for admission: Respiratory failure History of Present Illness: Patient is a 37-year-old gentleman who was scheduled for excision of a anal mass but when he was intubated he aspirated. Surgical procedure was canceled. We were, consulted for admission. Patient remains intubated at this time but he is oxygenating much better per Anesthesiology. Chest x-ray has shown improvement as well. Food particles were suctioned from ET tube. Patient will be weaned off the ventilator. Pulmonary consultation has been obtained. Anticipate extubation over the next 12 hours. Allergies No Known Allergies Allergy (Verified 03/09/22 14:26) Home Medications: Lisdexamfetamine Dimesylate [Vyvanse] 70 mg PO DAILY 03/09/22 Vortioxetine Hydrobromide [Trintellix] 20 mg PO DAILY 03/09/22 Amox/Clavulanate [Augmentin 875-125 Tab] 1 each PO BID #20 tab 03/14/22 predniSONE [Deltasone] 20 mg PO DAILY #5 tab 03/14/22 - Past Medical/Surgical History -: Anal mass -: ADD Past Surgical History: Patient denies surgical history - Family History Father Family History: Reviewed- Non-Contributory - Social History Smoking Status: Never smoker Alcohol use: No CD- Drugs: No Review of Systems is unable to be obtained Physical Examination - Vital Signs Temperature: 98.1 F Blood Pressure: 96/65 Pulse: 105 Respirations: 22 Pulse Ox (%): 95 - Physical Exam General: Alert, Other (ET tube) HEENT: Atraumatic, Normocephalic Neck: Supple, 2+ carotid pulse no bruit, JVD not distended Respiratory: Diminished, Rhonchi/gurgles Cardiovascular: Regular rate/rhythm, Normal S1 S2, No murmurs Gastrointestinal: Normal bowel sounds, Soft and benign, Non-distended, No tenderness Musculoskeletal: No clubbing, No swelling Integumentary: No rashes Neurological: Normal gait, Normal speech, Normal strength at 5/5 x4 extr, Normal tone, Sensation intact, Cranial nerves 3-12 intact Lymphatics: No axilla or inguinal lymphadenopathy Assessment & Plan - Problems (Diagnosis) (1) Aspiration pneumonia Current Visit: Yes Status: Acute Qualifiers: Laterality: right (2) Atelectasis of left lung Current Visit: Yes Status: Acute - Plan Plan: 1. Continue with IV antibiotics 2. Awaiting cultures 3. Repeat chest x-ray 4. Continue with surgery eval 5. Appreciate pulmonary consultation 6. Continue with nebs as needed 7. O2 per protocol 8. Continue with gentle hydration 9. Repeat labs including CBC and renal function in a.m. 10. GI and DVT prophylaxis Discharge Plan: Home Plan to discharge in: Greater than 2 days - Advance Directives Does patient have a Living Will: No Does patient have a Durable POA for Healthcare: No - Code Status/Comfort Care Code Status Assessed: Yes Code Status: Full Code Critical Care: No Time Spent Managing PTS Care (In Minutes): 45
[2022-03-13] MEDS ORDERED: MELATONIN 5 MG TABLET PO PRN (23:33)
[2022-03-14] MEDS: ALBUTEROL 2.5 MG/3 ML NEB SOL NEB SCH (01:25)
[2022-03-14] MEDS: IPRATROPIUM BROM 0.5MG/2.5ML NEB SCH (01:25)
[2022-03-14] MEDS: PIPER TAZO 3.375 GM in NA CHLORIDE 0.9% 100 ML IV SCH ×2 (02:12→08:58)
[2022-03-14] MEDS: NA CHLORIDE 0.9% 1,000 ML IV SCH (04:12)
[2022-03-14] MEDS: METOCLOPRAMIDE 10 MG/2mL INJ IV SCH (06:00)
[2022-03-14] MEDS: METHYLPREDNISOLONE 40 MG INJ IV SCH (06:00)
[2022-03-14 06:45] LABS: Absolute Lymphocytes (CBC) 0.9 K/uL (0.7-4.9); Hematocrit 39.7 % (39.6-49.0); Lymphocytes % 3.5 % (15.3-44.8); MCV 82.9 fL (80-100); MPV 8.7 fL (7.6-11.3); RBC Red Blood Cell Count 4.79 M/uL (4.33-5.43)
[2022-03-14 07:09] LABS: Magnesium 2.1 mg/dL (1.8-2.4); Potassium 3.7 mmol/L (3.5-5.1)
--- NOTE | 2022-03-14 07:24 | RAD REPORT ---
EXAM DESCRIPTION: [facility] Single View03/14/2022 6:18 am CLINICAL HISTORY: Shortness of breath COMPARISON: March 13, 2022 FINDINGS: Both lung bases are hazy. Heart is normal size. Mild prominence mediastinum IMPRESSION: Both lung bases are hazy which may could be secondary to aspiration pneumonia. Mild prominence mediastinum. This could further evaluated with PA lateral chest series
[2022-03-14 07:45] LABS: Blood Morphology Comment NOT SEEN (NOT SEEN); Platelet Estimate ADEQ
[2022-03-14 08:50] VITALS: O2SAT 95
[2022-03-14] MEDS ORDERED: ENOXAPARIN 40 MG/0.4 ML SQ SCH (09:00)
--- NOTE | 2022-03-14 10:42 | P.PN ---
Date of Service: 03/14/22 Subjective: Patient is awake and alert. Patient has no respiratory distress. Patient is tolerating diet. Patient wants to go home. Objective: Vitals are stable, patient is afebrile and O2 sats are above 95% on room air. Chest x-ray shows haziness in both bases. Chest: Clear Assessment: Right mainstem intubation with left lung white out and probable aspiration during intubation. Plan: I discussed the the care with Dr. Zamora. Patient can be discharged to home on Medrol Dosepak and a Z-David. Patient is to follow-up with GI service for gastric emptying issues. Patient will follow up with me after GI services cleared him and we will proceed with excision of the anal mass. CC:
--- NOTE | 2022-03-14 10:51 | P.PN ---
Subjective Date of Service: 03/14/22 Chief Complaint: Possible aspiration pneumonia Subjective: Improving (Patient is doing well no new complaints no cough sputum hemoptysis chest pain no fever) Review of Systems Unremarkable Physical Examination - Vital Signs Temperature: 98 F Blood Pressure: 118/78 Pulse: 110 Respirations: 20 Pulse Ox (%): 96 - Physical Exam General: Alert, Oriented x3 Respiratory: Clear to auscultation bilaterally, Diminished - Studies Laboratory Data (last 24 hrs) 03/14/22 06:27: Sodium 140, Potassium 3.7, BUN 10, Creatinine 0.97, Glucose 148 H, Magnesium 2.1 03/14/22 06:27: WBC 25.00 H*, Hgb 13.0 L, Hct 39.7, Plt Count 376 Assessment And Plan - Current Problems (Diagnosis) (1) Aspiration pneumonia Current Visit: Yes Status: Acute Plan: Patient has some haziness in the right lung possible aspiration pneumonia. He is currently doing well white count is elevated I suspect from steroid. Patient is hemodynamically stable to be discharged home on Augmentin Qualifiers: Laterality: right
[2022-03-14 11:02] VITALS: BP 96/65; TEMP 98.1
--- NOTE | 2022-03-14 11:04 | P.DS ---
Discharge Date: 03/14/22 Disposition: ROUTINE DISCHARGE Discharge Condition: GOOD Reason for Admission: Respiratory failure - Problems (1) Aspiration pneumonia Current Visit: Yes Status: Acute Qualifiers: Laterality: right (2) Atelectasis of left lung Current Visit: Yes Status: Acute Brief History of Present Illness: Patient is a 37-year-old gentleman who was scheduled for excision of a anal mass but when he was intubated he aspirated. Surgical procedure was canceled. We were, consulted for admission. Patient remains intubated at this time but he is oxygenating much better per Anesthesiology. Chest x-ray has shown improvement as well. Food particles were suctioned from ET tube. Patient will be weaned off the ventilator. Pulmonary consultation has been obtained. Anticipate extubation over the next 12 hours. Hospital Course: Patient doing well. Clinical symptoms are improved. Patient is stable for discharge with outpatient follow-up per general surgery. Vital Signs/Physical Exam: Temp Pulse Resp BP Pulse Ox 98.1 F 105 H 22 H 96/65 95 03/14/22 11:02 03/14/22 11:02 03/14/22 11:02 03/14/22 11:02 03/14/22 11:02 General: Alert, In no apparent distress, Oriented x3 Laboratory Data at Discharge: WBC 25.00 K/uL (4.3-10.9) H* 03/14/22 06:27 Hgb 13.0 g/dL (13.6-17.9) L 03/14/22 06:27 Hct 39.7 % (39.6-49.0) 03/14/22 06:27 Plt Count 376 K/uL (152-406) 03/14/22 06:27 Sodium 140 mmol/L (136-145) 03/14/22 06:27 Potassium 3.7 mmol/L (3.5-5.1) 03/14/22 06:27 BUN 10 mg/dL (7-18) 03/14/22 06:27 Creatinine 0.97 mg/dL (0.55-1.3) 03/14/22 06:27 Glucose 148 mg/dL (74-106) H 03/14/22 06:27 Magnesium 2.1 mg/dL (1.8-2.4) 03/14/22 06:27 Home Medications: Lisdexamfetamine Dimesylate [Vyvanse] 70 mg PO DAILY 03/09/22 Vortioxetine Hydrobromide [Trintellix] 20 mg PO DAILY 03/09/22 Amox/Clavulanate [Augmentin 875-125 Tab] 1 each PO BID #20 tab 03/14/22 predniSONE [Deltasone] 20 mg PO DAILY #5 tab 03/14/22 New Medications: Amox/Clavulanate [Augmentin 875-125 Tab] 1 each PO BID #20 tab predniSONE [Deltasone] 20 mg PO DAILY #5 tab Physician Discharge Instructions: -DC IV and DC home -Follow-up with PCP in 1 to 2 weeks -Follow-up with Surgery and Pulmonary in 1 to 2 weeks -Please call Dr. Zamora at [phone] if any questions regarding hospital stay -Please call nursing station at [phone] if any nursing or medication questions -Return to the emergency room if symptoms worsen Diet: Regular Activity: Fall precautions Followup: August Mckay, [Primary Care Provider] - Time spent managing pt's care (in minutes): 35
== END 2022-03-14 11:55 | disposition home or self-care (01) | DRG 208 ==
LOC: OR 06:23 → 3RD-ICU 10:20
PROVIDERS: ADMIT Surgery; ATTEND Hospitalist
PROC: 0BH17EZ Insertion of Endotracheal Airway into Trachea, Via Natural or Artificial Opening (ICD-10-PCS; 2022-03-13)
PROC: 5A1935Z Respiratory Ventilation, Less than 24 Consecutive Hours (ICD-10-PCS; principal; 2022-03-13 07:30)
DX: J69.0 Pneumonitis due to inhalation of food and vomit (principal); J98.11 Atelectasis; Z79.52 Long term (current) use of systemic steroids; Z79.899 Other long term (current) drug therapy; Z20.822 Contact with and (suspected) exposure to COVID-19
CPT/HCPCS: 36415; 71045; 71046; 80048; 83735; 83880; 84145; 85025; 87811; 93005; 94002; 94003; 94640; A4216; J0330; J0694; J1100; J1650; J2001; J2250; J2405; J2543; J2704; J2710; J2765; J2920; J3010; J7030; J7120